=== PATIENT | male | born 1965 | race Caucasian/White ===

== ENCOUNTER 2018-10-25 20:12 | Observation (INO) | payer OTHER, MEDICAID, SELFPAY ==
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
--- NOTE | 2018-10-25 20:17 | DI.CT.S_ITS ---
PROCEDURE: CT CERVICAL SPINE WO CON INDICATIONS: trauma protocol, right shoulder pain TECHNIQUE: Noncontrast 3 mm thick sections acquired from the skull base to the T4 level. Sagittal and coronal reformats were then constructed. For radiation dose reduction, the following was used: automated exposure control, adjustment of mA and/or kV according to patient size. COMPARISON: None. FINDINGS: Image quality: Excellent. Bones: No acute fractures or dislocations. Craniocervical junction is intact. Visualized superior ribs are intact. Mild multilevel cervical spondylosis. Soft tissues: Prevertebral soft tissues are normal in thickness. No paravertebral hematomas. No apical pneumothoraces. IMPRESSION: CT cervical spine without acute fracture or malalignment. Dictated by: Young Millard M.D. on 10/25/2018 at 21:05 Approved by: Young Millard M.D. on 10/25/2018 at 21:07
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
--- NOTE | 2018-10-25 20:18 | DI.CT.S_ITS ---
PROCEDURE: CT HEAD/BRAIN WO CON INDICATIONS: trauma protocol TECHNIQUE: Noncontrast 4.5 mm thick angled axial sections acquired from the foramen magnum to the vertex, with coronal and sagittal reformats. For radiation dose reduction, the following was used: automated exposure control, adjustment of mA and/or kV according to patient size. COMPARISON: None. FINDINGS: Image quality: Excellent. CSF spaces: Basal cisterns are patent. No extra-axial fluid collections. The ventricles are symmetric in size and shape. Brain: No intracranial bleeds or masses. There is cerebral volume loss for age, with resultant ventricular and sulcal prominence. There are periventricular and deep white matter chronic small vessel ischemic changes. There is intracranial internal carotid artery atherosclerosis. Skull and face: Calvarium and visualized facial bones appear intact, without acute fracture. 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 Sinuses: Visualized sinuses and mastoids are clear. IMPRESSION: 1. CT head without acute intracranial abnormalities or calvarial fractures. 2. 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 Recommend outpatient evaluation with contrast-enhanced MRI to further characterize. Dictated by: Young Milalrd M.D. on 10/25/2018 at 21:02 Approved by: Young Millard M.D. on 10/25/2018 at 21:05
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
[2018-10-25 20:22] VITALS: BP 148/94; PULSE 78; RESP 19; TEMP 37; O2SAT 90; BMI 30.2
[2018-10-25 20:31] LABS: Add Manual Diff / Slide Review NO; Basophils Absolute Auto 0 /uL (0-100); Basophils Percent Auto 0.5 % (0-2); Eosinophils Absolute Auto 200 /uL (0-450); Eosinophils Percent Auto 2.2 % (2-4); Hematocrit 41.8 % (41-53); Hemoglobin 13.6 g/dL (13.5-17.5); Lymphocytes Absolute Auto 3000 /uL (1100-4500); Lymphocytes Percent Auto 31.7 % (25-40); Mean Corpuscular HGB Conc 32.5 % (30-36); Mean Corpuscular Hemoglobin 28.8 PG (26-34); Mean Corpuscular Volume 88.5 fL (80-100); Monocytes Absolute Auto 700 /uL (0-900); Monocytes Percent Auto 6.9 % (3-14); Neutrophils Absolute Auto 5600 /uL (1500-7000); Neutrophils Percent Auto 58.7 % (50-75); Platelet Count 280 X10^3/uL (150-400); Red Blood Cell Count 4.72 X10^6/uL (4.5-5.9); Red Cell Distribution Width 13.7 % (11.6-14.8); White Blood Cell Count 9.6 X10^3/uL (4.5-11.0)
[2018-10-25 20:52] LABS: Alanine Aminotransferase 55 IU/L (21-72); Albumin 4.4 g/dL (3.5-5.0); Albumin Globulin Ratio 1.5 (1.0-2.8); Alkaline Phosphatase 57 U/L (38-126); Aspartate Aminotransferase 32 IU/L (17-59); Bilirubin Total 0.5 mg/dL (0.2-1.3); Blood Urea Nitrogen 12 mg/dL (9-20); Calcium 8.4 mg/dL (8.4-10.2); Carbon Dioxide 23 mmol/L (22-32); Chloride 100 mmol/L (98-107); Estimated Glomerular Filt Rate > 60.0 mL/min (>60); Ethanol (ETOH) 110 mg/dL; Glucose 139 mg/dL (70-100); HEMOLYSIS < 15 (0-50); Lipase 81 U/L (23-300); Potassium 3.7 mmol/L (3.4-5.1); Sodium 136 mmol/L (137-145); Total Protein 7.4 g/dL (6.3-8.2)
[2018-10-25 20:56] LABS: Amylase 47 U/L (30-110)
[2018-10-25] MEDS: MORPHINE 5 MG/ML INJ 4 MG IV (20:58)
[2018-10-25] MEDS: SODIUM CHLORIDE 0.9% 1,000 ML 150 ML IV (21:20)
[2018-10-25] MEDS: HYDROMORPHONE 1 MG INJ IV (22:46)
[2018-10-25 22:51] VITALS: BP 126/75; PULSE 78; RESP 12; O2SAT 95
[2018-10-25 23:11] VITALS: PULSE 78; RESP 16; O2SAT 95
[2018-10-26 00:25] VITALS: BP 147/88; PULSE 78; RESP 16; TEMP 37.6; O2SAT 94
[2018-10-26 00:34] VITALS: BMI 30.2
[2018-10-26] MEDS: SODIUM CHLORIDE 0.9% 1,000 ML 100 ML IV ×2 (02:30→14:28)
[2018-10-26] MEDS: HYDROMORPHONE PCA (6MG/30ML) 6 MG/30 ML PCA.VIAL IV ×3 (02:30→18:14)
[2018-10-26 04:15] VITALS: BP 155/97; PULSE 67; RESP 16; TEMP 37.3; O2SAT 96
--- NOTE | 2018-10-26 04:27 | PC.NURSE ---
[employer] Superintendent Note: 0025: Admitted to acute care room 229 from ER. Pt was unable to sit up and stand to get to bed; slider board used to transfer pt from stretcher to bed, and he tolerated fairly well. IVs in place in rt AC and rt forearm. NS started at 150cc/hr per ER orders. Lt arm sling in place to immoblilze lt arm and shoulder. Lt fingers are warm and pink, and radial pulse is strong, equal to rt radial pulse. HOB elevated 30 degrees-pt unable to tolerate HOB being higher due to pain. 0100: Friend arrived to bedside. 0230: Pt placed on Dilaudid SUPERVISOR LEAD BURNING at 0.2/10/6, and basal rate of 0.1mg/hr.
[2018-10-26 08:00] VITALS: BP 160/108; PULSE 62; RESP 16; TEMP 36.8; O2SAT 97
[2018-10-26] MEDS: KETOROLAC 30 MG/ML VIAL IV ×3 (08:14→21:58)
[2018-10-26] MEDS: LISINOPRIL 20 MG TABLET PO (08:15)
[2018-10-26] MEDS: DOCUSATE 100 MG CAPSULE PO (08:15)
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
[2018-10-26 12:00] VITALS: BP 148/89; PULSE 65; RESP 16; TEMP 36.6; O2SAT 96
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
--- NOTE | 2018-10-26 15:37 | PC.NURSE ---
Ortho: SI feel so much better with the toradol. Lots of pain this am even with receiving solutions market consultant cont and bolus. Started IV toradol. Pt reports pain is much improved after same. Has worked with PT and has been using a pain to get up with. Stronger on feet. SBA only due to IV/MACHINIST BENCH pole for safety. Friends at bedside and pt has had lots of company and phone calls. Resting comfortably this afternoon. Cont w/poc.
[2018-10-26 16:45] VITALS: BP 148/86; PULSE 57; RESP 20; TEMP 36.6; O2SAT 96
[2018-10-26] MEDS: PRAVASTATIN 20 MG TABLET PO (20:25)
[2018-10-26] MEDS: FLUTICASONE 120 SPRAY/16 GM SPRAY.SUSP NASAL (20:25)
--- NOTE | 2018-10-26 21:35 | PC.NURSE ---
bria shift- assumed care of pt from outgoing shfit. pt awake and alert.denies CIWA symptoms. complains of back ache. encouraged to move self in bed. needs assistance. has large amount of pain with any movement. STEEL BOX TOE INSERTER in use. reports torodol helps tremendously. Pt belongings and call light within reach. hoping to have a shower but he is worried he will be in too much pain. will continue to monitor.
[2018-10-26 21:54] VITALS: PULSE 65; RESP 18; O2SAT 95
[2018-10-26] MEDS: FLUTICASONE/SALMETEROL 250/50 14 PUFF DISKUS INH (21:54)
--- NOTE | 2018-10-26 23:44 | PC.NURSE ---
Photo Stylist Note: [id number]: Awake, just finished taking shower and shampoo with assistance. Vital signs stable. IVs in place in rt AC and rt forearm. Lt shoulder immobilizer is on. Bruising noted on lt side, lt shoulder. Pt using ATHLETICS TEACHER for pain management.
[2018-10-27] VITALS (7 sets, daily range): BP systolic 135–148; BP diastolic 73–96; PULSE 67–85; RESP 16–21; TEMP 36.5–37.3; O2SAT 93–97
[2018-10-27] MEDS: SODIUM CHLORIDE 0.9% 1,000 ML 100 ML IV (02:28)
[2018-10-27] MEDS: HYDROMORPHONE PCA (6MG/30ML) 6 MG/30 ML PCA.VIAL IV (02:29)
[2018-10-27 05:33] LABS: Add Manual Diff / Slide Review NO; Basophils Absolute Auto 0 /uL (0-100); Basophils Percent Auto 0.4 % (0-2); Eosinophils Absolute Auto 200 /uL (0-450); Eosinophils Percent Auto 2.9 % (2-4); Hematocrit 34.1 % (41-53); Hemoglobin 11.5 g/dL (13.5-17.5); Lymphocytes Absolute Auto 1800 /uL (1100-4500); Lymphocytes Percent Auto 21.1 % (25-40); Mean Corpuscular HGB Conc 33.7 % (30-36); Mean Corpuscular Hemoglobin 30.4 PG (26-34); Mean Corpuscular Volume 90.1 fL (80-100); Monocytes Absolute Auto 800 /uL (0-900); Monocytes Percent Auto 9.6 % (3-14); Neutrophils Absolute Auto 5600 /uL (1500-7000); Platelet Count 166 X10^3/uL (150-400); Red Blood Cell Count 3.78 X10^6/uL (4.5-5.9); Red Cell Distribution Width 13.1 % (11.6-14.8); White Blood Cell Count 8.4 X10^3/uL (4.5-11.0)
[2018-10-27] MEDS: KETOROLAC 30 MG/ML VIAL IV ×3 (06:08→21:37)
[2018-10-27] MEDS: FLUTICASONE/SALMETEROL 250/50 14 PUFF DISKUS INH ×2 (07:52→20:31)
--- NOTE | 2018-10-27 09:05 | PM.PN.1 ---
Subjective Date Patient Seen: 10/27/18 Time Patient Seen: 09:06 Interval history: Still having a large amount of pain with trying to move or taking a deep breath. All in the left upper chest region. currently on a SAP ABAP DEVELOPER and getting Toradol, which works well. However the Toradol wears off after about 5 hours. No nausea or headaches Exam Vital Signs (past 8 hours): - 10/27/18 06:00 10/27/18 08:00 Temperature 98.8 F 97.7 F Pulse Rate 68 68 Respiratory Rate 16 16 Blood Pressure 135/76 144/88 H Pulse Oximetry 97 93 Oxygen Delivery Method Room Air Const Orientation: alert and oriented x3 Extrem Other: Left shoulder ecchymosis over the clavicle and inferior scapula. Still slightly decreased sensation over the deltoid. Intact sensation of the forearm. 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 2+ distal pulses. Objective Labs Result Diagrams: 10/27/18 05:20 10/25/18 20:20 Labs: Laboratory Results - last 24 hr 10/27/18 05:20 WBC 8.4 RBC 3.78 L Hgb 11.5 L Hct 34.1 L MCV 90.1 MCH 30.4 MCHC 33.7 RDW 13.1 Plt Count 166 Neut % (Auto) 66.0 Lymph % (Auto) 21.1 L [place] % (Auto) 9.6 Eos % (Auto) 2.9 Baso % (Auto) 0.4 Neut # (Auto) 5600 Lymph # (Auto) 1800 [place] # (Auto) 800 Eos # (Auto) 200 Baso # (Auto) 0 Assessment & Plan Assessment & Plan narrative: Stable from an orthopedic standpoint. Again explained that this injury should heal fine with just a sling and does not require any surgical intervention. I did go ahead and stop his SAP ABAP DEVELOPER and switched him to Percocet for pain relief. Continue mobilization with therapy. Fine to discharge home from an orthopedic standpoint and he can follow up in my office in a week. Quality VTE Deep Vein Thrombosis/Pulmonary Embolism Present on Admission: No
[2018-10-27] MEDS: LISINOPRIL 20 MG TABLET PO (09:07)
[2018-10-27] MEDS: OXYCODONE/ACETAMINOPHEN 5/325 TABLET 2 TAB PO ×2 (09:07→19:58)
[2018-10-27] MEDS: DOCUSATE 100 MG CAPSULE PO (09:07)
--- NOTE | 2018-10-27 09:08 | P.PN_ITS ---
Subjective Date Patient Seen: 10/27/18 Time Patient Seen: 09:06 Interval history: Still having a large amount of pain with trying to move or taking a deep breath. All in the left upper chest region. currently on a LONE LEAD LINEMAN and getting Toradol, which works well. However the Toradol wears off after about 5 hours. No nausea or headaches Exam Vital Signs (past 8 hours): - 10/27/18 06:00 10/27/18 08:00 Temperature 98.8 F 97.7 F Pulse Rate 68 68 Respiratory Rate 16 16 Blood Pressure 135/76 144/88 H Pulse Oximetry 97 93 Oxygen Delivery Method Room Air Const Orientation: alert and oriented x3 Extrem Other: Left shoulder ecchymosis over the clavicle and inferior scapula. Still slightly decreased sensation over the deltoid. Intact sensation of the forearm. Good performance improvement manager, easily wiggles fingers. 2+ distal pulses. Objective Labs Result Diagrams: 10/27/18 05:20 10/25/18 20:20 Labs: Laboratory Results - last 24 hr 10/27/18 05:20 WBC 8.4 RBC 3.78 L Hgb 11.5 L Hct 34.1 L MCV 90.1 MCH 30.4 MCHC 33.7 RDW 13.1 Plt Count 166 Neut % (Auto) 66.0 Lymph % (Auto) 21.1 L [place] % (Auto) 9.6 Eos % (Auto) 2.9 Baso % (Auto) 0.4 Neut # (Auto) 5600 Lymph # (Auto) 1800 [place] # (Auto) 800 Eos # (Auto) 200 Baso # (Auto) 0 Assessment & Plan Assessment & Plan narrative: Stable from an orthopedic standpoint. Again explained that this injury should heal fine with just a sling and does not require any surgical intervention. I did go ahead and stop his LONE LEAD LINEMAN and switched him to Percocet for pain relief. Continue mobilization with therapy. Fine to discharge home from an orthopedic standpoint and he can follow up in my office in a week. Quality VTE Deep Vein Thrombosis/Pulmonary Embolism Present on Admission: No
[2018-10-27] MEDS: FLUTICASONE 120 SPRAY/16 GM SPRAY.SUSP NASAL ×2 (09:09→21:37)
--- NOTE | 2018-10-27 10:22 | PM.PN.1 ---
Subjective Date Patient Seen: 10/27/18 Time Patient Seen: 10:22 Interval history: Patient is feeling better than yesterday of course he is able to get out of bed with assistance getting PT is been cleared by Orthopedics to be discharged but I do not think he is quite ready yet Exam Vital Signs (past 8 hours): - 10/27/18 06:00 10/27/18 08:00 10/27/18 09:03 Temperature 98.8 F 97.7 F Pulse Rate 68 68 70 Respiratory Rate 16 16 20 Blood Pressure 135/76 144/88 H Pulse Oximetry 97 93 97 Oxygen Delivery Method Room Air Narrative Exam Narrative: Patient is afebrile stable vital signs still has of course a great deal of tenderness around his left shoulder girdle left arm is in a sling and swath. Abdomen is soft and nontender. No new findings. Objective Labs Result Diagrams: 10/27/18 05:20 10/25/18 20:20 Labs: Laboratory Results - last 24 hr 10/27/18 05:20 WBC 8.4 RBC 3.78 L Hgb 11.5 L Hct 34.1 L MCV 90.1 MCH 30.4 MCHC 33.7 RDW 13.1 Plt Count 166 Neut % (Auto) 66.0 Lymph % (Auto) 21.1 L [place] % (Auto) 9.6 Eos % (Auto) 2.9 Baso % (Auto) 0.4 Neut # (Auto) 5600 Lymph # (Auto) 1800 [place] # (Auto) 800 Eos # (Auto) 200 Baso # (Auto) 0 Assessment & Plan Assessment & Plan narrative: Patient is recovering with the assistance of physical therapy. No new findings on history or exam. Will continue the IV Toradol , added Flexeril. When the patient is able to ambulate with minimal assistance then we will let him go home but I do not think is ready to go home yet today. Quality VTE Deep Vein Thrombosis/Pulmonary Embolism Present on Admission: No
[2018-10-27] MEDS: CYCLOBENZAPRINE 10 MG TABLET PO ×2 (11:34→21:37)
[2018-10-27] MEDS: POLYETHYLENE GLYCOL 3350 17 GM POWD.PACK PO (11:34)
[2018-10-27] MEDS: OXYCODONE/ACETAMINOPHEN 5/325 TABLET 1 TAB PO (14:27)
--- NOTE | 2018-10-27 14:33 | PC.NURSE ---
Pain/Mobility: Pain better but still present even with mill helper. Pt would like to try po meds to see if he has pain improvement, hard to remember to push mill helper button. Switched to oral perc and pt received a dose this am and reported it as working better than mill helper. Telephone Solicitor Supervisor off and IVF to saline lock. Dr. Lucero saw pt and added flexaril. Pt was snoozing off and on after same. SI needed that, it's been so hard to sleep here. Opted for only 1 perc this afternoon. Pain remains in control. Hopefully he will cont to feel better. Cont w/poc.
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
[2018-10-27] MEDS: PRAVASTATIN 20 MG TABLET PO (21:37)
--- NOTE | 2018-10-27 22:54 | PC.NURSE ---
DEISI SHIFT NOTE: Patient doing well this shift. Pain helped with 2 percocet, tordol and flexeril. Patient pain increases sharply when tordol wears off per patient. Patient up ambulating with staff this shift. Gait steady. No voiced complaints other than pain. Medicated per eMar. No acute distress. Will continue to monitor.
[2018-10-28 01:00] VITALS: BP 145/79; PULSE 56; RESP 18; TEMP 36.1; O2SAT 99
--- NOTE | 2018-10-28 01:07 | PC.NURSE ---
[employer] History Professor Note: 0100: Sleeping; arousable. Pt states his pain is minimal at this time. Vital signs stable. Lt arm sling remains on. HOB elevated [address] in rt wrist.
[2018-10-28 04:00] VITALS: BP 140/75; PULSE 64; RESP 18; TEMP 36.5; O2SAT 96
[2018-10-28] MEDS: OXYCODONE/ACETAMINOPHEN 5/325 TABLET 2 TAB PO (04:14)
[2018-10-28] MEDS: CYCLOBENZAPRINE 10 MG TABLET PO ×2 (06:06→13:30)
[2018-10-28] MEDS: KETOROLAC 30 MG/ML VIAL IV (06:06)
[2018-10-28 07:27] VITALS: PULSE 54; RESP 14; O2SAT 95
[2018-10-28] MEDS: FLUTICASONE/SALMETEROL 250/50 14 PUFF DISKUS INH (07:28)
[2018-10-28 08:00] VITALS: BP 130/78; PULSE 54; RESP 16; TEMP 36.9; O2SAT 96
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
[2018-10-28] MEDS: POLYETHYLENE GLYCOL 3350 17 GM POWD.PACK PO (09:25)
[2018-10-28] MEDS: DOCUSATE 100 MG CAPSULE PO (09:25)
[2018-10-28] MEDS: FLUTICASONE 120 SPRAY/16 GM SPRAY.SUSP NASAL (09:25)
[2018-10-28] MEDS: LISINOPRIL 20 MG TABLET PO (09:25)
[2018-10-28] MEDS: SODIUM CHLORIDE 0.9% FLUSH 10 ML IV (09:26)
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
--- NOTE | 2018-10-28 11:00 | PC.NURSE ---
Addendum entered by Suzan Pack R.N. 10/28/18 13:41: pt belongings packed up, to include IS and Percocet prescription. Patient requested to ambulate instead of wheelchair, HANDS HANGER walked pt and friend out to ER doors. Original Note: AM Shift pt AO and receptive to care. Reporting 4/10 pain in upper extremity area, which is tolerable and wearing sling. Able to ambulate to BR with cane assistance. PT eval and cleared pt and is now IND in room. Utiling cane to get up from sitting/laying position and gait is steady. Mild edema to lower right extremity (+1, nonpitting). State he is prepared to go home and has a walking stick at home that PT okayed for use.
[2018-10-28] MEDS: OXYCODONE/ACETAMINOPHEN 5/325 TABLET 1 TAB PO ×2 (11:29→13:30)
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
== END 2018-10-28 13:40 | disposition home or self-care (01) | DRG 135 ==
LOC: ED 23:14 → AC 10-26 07:13
PROVIDERS: Admitting Provider Surgery; Emergency Provider Emergency Medicine; Family Provider Family Medicine; PCP Family Medicine; Visit Provider Surgery
DX: S22.42XA Multiple fractures of ribs, left side, initial encounter for closed fracture (principal); S42.002A Fracture of unspecified part of left clavicle, initial encounter for closed fracture; S42.192A Fracture of other part of scapula, left shoulder, initial encounter for closed fracture; I10 Essential (primary) hypertension; E78.5 Hyperlipidemia, unspecified; V86.59XA Driver of other special all-terrain or other off-road motor vehicle injured in nontraffic accident, initial encounter; Y93.I9 Activity, other involving external motion; Z87.891 Personal history of nicotine dependence
CPT/HCPCS: 36415; 70450; 71045; 71260; 72125; 73030; 74177; 80053; 80320; 82150; 83690; 85025; 86850; 86900; 86901; 94640; 94760; 96374; 96375; 97116; 97161; 97530; 99283; 99285; G0378; 90715; J1170; J1885; J2270

== ENCOUNTER → 2020-02-10 13:35 | Outpatient (CLI) | payer OTHER, MEDICAID, SELFPAY ==
[2020-02-10 15:23] LABS: Alanine Aminotransferase 23 IU/L (<50); Albumin 4.6 g/dL (3.5-5.0); Albumin Globulin Ratio 1.7 (1.0-2.8); Alkaline Phosphatase 68 U/L (38-126); Aspartate Aminotransferase 27 IU/L (17-59); BUN Creatinine Ratio 15.7 (6-22); Bilirubin Total 1.1 mg/dL (0.2-1.3); Blood Urea Nitrogen 13 mg/dL (9-20); Calcium 9.9 mg/dL (8.4-10.2); Carbon Dioxide 27 mmol/L (22-32); Chloride 101 mmol/L (98-107); Cholesterol 214 mg/dL (140-199); Estimated Glomerular Filt Rate > 60.0 mL/min (>60); Globulin 2.7 g/dL (1.7-4.1); Glucose 98 mg/dL (70-100); HDL Cholesterol 62 mg/dL (40-60); HEMOLYSIS < 15 (0-50); LDL Cholesterol Calculated 114 mg/dL (<100); Potassium 4.4 mmol/L (3.4-5.1); Sodium 136 mmol/L (137-145); Total Protein 7.3 g/dL (6.3-8.2); Triglycerides 189 mg/dL (35-150)
[2020-02-10 15:33] LABS: Hemoglobin A1C% w Est Avg Glu 5.9 % (4.0-6.0)
[2020-02-10 15:50] LABS: Thyroid Stimulating Hormone 2.47 uIU/mL (0.47-4.68)
== END ==
PROVIDERS: Family Provider Family Medicine; PCP Family Medicine; Referring Provider Family Medicine; Visit Provider Family Medicine
DX: E87.5 Hyperkalemia (principal)
CPT/HCPCS: 36415; 80053; 80061; 83036; 84443

== ENCOUNTER → 2021-10-04 12:51 | Outpatient (CLI) | payer OTHER, MEDICAID, SELFPAY ==
--- NOTE | 2021-10-04 | DI.RAD.S_ITS ---
PROCEDURE: XR KNEE LT 3V INDICATIONS: Pain in left knee TECHNIQUE: 3 views of the knee were acquired. COMPARISON: [facility], , KNEE 3V LEFT, 05/01/2010, 20:34. [facility], , KNEE 3V LEFT, 09/06/2010, 14:37. FINDINGS: Bones: No fractures or dislocations. No suspicious bony lesions. Minimal degenerative joint disease. Soft tissues: No joint effusion. No suspicious soft tissue calcifications. IMPRESSION: Minimal degenerative joint disease. If clinical symptoms persist or clinical suspicion for internal derangement is high, MRI is suggested for further evaluation. Dictated by: Zita Shaikh M.D. on 10/04/2021 at 17:36 Approved by: Zita Shaikh M.D. on 10/04/2021 at 17:38
== END ==
PROVIDERS: Family Provider Family Medicine; PCP Family Medicine; Referring Provider Family Medicine; Visit Provider Family Medicine
DX: M25.562 Pain in left knee (principal)
CPT/HCPCS: 73562

== ENCOUNTER → 2022-05-23 07:43 | Outpatient (CLI) | payer OTHER, MEDICAID, SELFPAY ==
[2022-05-23 08:32] LABS: HEMOLYSIS < 15 (0-50)
[2022-05-23 08:37] LABS: Alanine Aminotransferase 37 IU/L (<50); Albumin 4.3 g/dL (3.5-5.0); Albumin Globulin Ratio 1.5 (1.0-2.8); Alkaline Phosphatase 71 U/L (38-126); Aspartate Aminotransferase 34 IU/L (17-59); BUN Creatinine Ratio 11.4 (6-22); Bilirubin Total 0.9 mg/dL (0.2-1.3); Blood Urea Nitrogen 9 mg/dL (9-20); Calcium 9.3 mg/dL (8.4-10.2); Carbon Dioxide 28 mmol/L (22-32); Chloride 97 mmol/L (98-107); Cholesterol 211 mg/dL (140-199); Estimated Glomerular Filt Rate > 60 mL/min (>60); Globulin 2.8 g/dL (1.7-4.1); Glucose 133 mg/dL (70-100); HDL Cholesterol 62 mg/dL (40-60); LDL Cholesterol Calculated 109 mg/dL (<100); Sodium 134 mmol/L (137-145); Total Protein 7.1 g/dL (6.3-8.2); Triglycerides 200 mg/dL (35-150)
[2022-05-23 15:09] LABS: LDL Cholesterol Direct 137 mg/dL (<100)
[2022-05-23 18:16] LABS: Hemoglobin A1C% w Est Avg Glu 6.2 % (4.0-6.0)
== END ==
PROVIDERS: Family Provider Family Medicine; PCP Family Medicine; Referring Provider Family Medicine; Visit Provider Family Medicine
DX: R73.01 Impaired fasting glucose (principal); E78.5 Hyperlipidemia, unspecified; I10 Essential (primary) hypertension; M10.9 Gout, unspecified
CPT/HCPCS: 36415; 80053; 80061; 83036; 83721; 84550

== ENCOUNTER → 2023-06-01 15:45 | Outpatient (CLI) | payer OTHER, MEDICAID, SELFPAY ==
--- NOTE | 2023-06-01 | DI.RAD.S_ITS ---
PROCEDURE: XR CHEST 2V INDICATIONS: CHEST PAIN TECHNIQUE: 2 views of the chest were acquired. COMPARISON: [facility], CR, XR CHEST 1V, 10/25/2018, 20:15. FINDINGS: Surgical changes and devices: None. Lungs and pleura: Lungs are clear. No pleural effusions or pneumothorax. Mediastinum: Mediastinal contours are normal. Heart size is normal. Bones and chest wall: No suspicious bony abnormalities. Soft tissues appear unremarkable. Old healed right-sided rib fractures IMPRESSION: No acute cardiopulmonary abnormality is seen. Approved by: Riky Marino M.D. on 06/01/2023 at 18:52
== END ==
PROVIDERS: Family Provider Family Medicine; PCP Family Medicine; Referring Provider Family Medicine; Visit Provider Family Medicine
DX: R07.9 Chest pain, unspecified (principal)
CPT/HCPCS: 71046

== ENCOUNTER → 2023-08-15 09:36 | Outpatient (CLI) | payer OTHER, MEDICAID, SELFPAY ==
--- NOTE | 2023-08-15 | DI.NM.S_ITS ---
PROCEDURE: NM YAYA PERF SPECT REST & STR Rest and exercise myocardial perfusion SPECT with gated imaging and ejection fraction RADIOPHARMACEUTICAL: 26.7 mCi Tc-99m sestamibi IV at rest and 24.3 mCi Tc-99m sestamibi IV at peak exercise. A [id number] was performed. INDICATIONS: CHEST PAIN /POSTURAL DIZZINESS W/PRESYNCOPE TECHNIQUE: Radiopharmaceutical was injected at peak stress test, and also at rest. SPECT images were obtained. SPECT myocardial perfusion images were displayed in short axis, horizontal long axis, and vertical long axis views. Gated images were reviewed using [employer] software. COMPARISON: None. CARDIAC STRESS: A standard Jimmy treadmill exercise tolerance test was performed by the patient under the supervision of an attending staff. The patient exercised for 8 minutes and 16 seconds; 9.1 METS; functional aerobic impairment (LUDMILA) is +11%. Hemodynamic data: There is normal blood pressure and heart rate response to exercise stress. Patient achieved 89% of maximum predicted heart rate at peak exercise. Maximum blood pressure 188/94. Symptoms: Patient denied chest pain during exercise. EKG: No diagnostic EKG changes of ischemia; no ectopy. FINDINGS: Raw data: There is good myocardial labeling by radiotracer. No significant motion artifacts. Vbcy-ct-ewgou ratio is 0.22 (normal is less than 0.38 for sestamibi tracer, and less than 0.50 for thallium tracer). Left ventricle function: Gated images demonstrate normal left ventricle wall thickening. No segmental wall motion abnormality. No transient ischemic dilation; TID is 0.9 (normal less than 1.3). The left ventricle resting end-diastolic volume is 172 mL. Left ventricle stress ejection fraction is 68%; normal values are above 45%. Myocardial perfusion: There is a moderate size, medium intensity fixed inferolateral wall defect that resolves in prone imaging. No reversible perfusion defects. IMPRESSION: Low risk study. No evidence of exercise-induced ischemia on ECG or SPECT imaging. The fixed inferolateral wall defect resolves in prone imaging making this most consistent with attenuation artifact. The calculated left ventricular end-diastolic volume suggest that the left ventricle may be dilated. Otherwise the ejection fraction is normal. Normal hemodynamic response to exercise. Reduced exercise capacity. Dictated by: Kimberly Cummins D.O. on 08/16/2023 at 17:48 Approved by: Kimberly Cummins D.O. on 08/16/2023 at 17:51
== END ==
PROVIDERS: Family Provider Family Medicine; PCP Family Medicine; Referring Provider Family Medicine; Visit Provider Family Medicine
DX: R07.9 Chest pain, unspecified (principal); R42 Dizziness and giddiness; R55 Syncope and collapse
CPT/HCPCS: 78452; 93017; A9502

== ENCOUNTER → 2023-11-13 06:47 | Outpatient (CLI) | payer OTHER, MEDICAID, SELFPAY ==
--- NOTE | 2023-11-13 06:49 | DI.ECHO.S_ITS ---
[facility] +---------+ Hospital : : [address] : : [place] : : [id number] : : Phone: [phone] Echocardiogram Report + + :Name: GEORGETTE MELENDEZ Study Date: 11/13/2023 Height: 73 in : :Hospital ReadingLocation: Weight: 250 lb : : Gender: Male BSA: 2.4 m2 : :: 1965 Age: 58 yrs BP: 154/96 mmHg: :Reason For Study: LEFT VENTRICULAR DILATION : :Ordering Physician: HAILEY, : :THUAN Performed By: Jason Ross : :Referring: THUAN HART : + + Interpretation Summary 1) Normal left ventricular thickness, size, wall motion, and systolic function (EF 60-65%). 2) Mildly enlarged right ventricle with normal function. 3) No significant valvular abnormalities. 4) No prior Echo available for comparison. Procedure: A two-dimensional transthoracic echocardiogram with color flow and Doppler was performed. The study quality was technically adequate. There is no prior echocardiogram noted for this patient. The patient was in sinus rhythm with heart rates between 51-68 bpm during the exam. Left Ventricle: The left ventricle is normal in size and wall thickness. The ejection fraction is estimated to be 60-65%. There are no obvious focal wall motion abnormalities noted but poor endocardial definition reduces the sensitivity for the detection of such. Right Ventricle: The right ventricle is mildly dilated. The right ventricular systolic function is normal. Atria: The left atrial size is normal. Right atrial size is normal. The interatrial septum grossly appears intact with no obvious evidence for an atrial septal defect. Mitral Valve: The mitral valve is normal. There is no mitral valve stenosis. There is no mitral regurgitation noted. Aortic Valve: The aortic valve is grossly normal. The aortic valve is not well visualized. There is no aortic valve stenosis. There is trace aortic regurgitation. Tricuspid Valve: The tricuspid valve is normal. There is no tricuspid stenosis. No tricuspid regurgitation. Pulmonic Valve: The pulmonic valve is not well visualized. There is no pulmonic valvular stenosis. There is no pulmonic valvular regurgitation. Great Vessels: The aortic root is normal size. The ascending aorta could not be visualized. The IVC is of normal diameter and collapses greater than 50% with a sniff. This suggests a low right atrial pressure of 3 mm Hg. Pericardium/ Pleura There is no pericardial effusion. There is no pleural effusion. MMode/2D Measurements & Calculations LVIDd: 5.6 cm LVOT diam: 2.1 cm LVIDs: 3.9 cm Ao root diam: 3.3 cm FS: 29.9 % asc Aorta Diam: 3.6 cm IVSd: 0.88 cm Ao Arch Diam (Prox Trans): 3.0 cm LVPWd: 1.1 cm LV almeida. diameter/BSA (cm/m^2): 2.4 LV sys. diameter/BSA (cm/m^2): 1.7 LA A2 area: 20.6 cm2 RA long axis: 4.9 cm LA A4 area: 27.2 cm2 RA area: 19.2 cm2 LA length (vol): 6.4 cm RA vol: 64.4 ml LA vol: 74.5 ml RA : 27.2 ml/m2 LA vol index: 31.5 ml/m2 IVC diam: 2.1 cm RVD1 (basal): 4.4 cm RVD2 (mid): 3.8 cm TAPSE: 3.0 cm Doppler Measurements & Calculations Ao V2 max: 195.3 cm/sec LVOT Max Hardeep: 148.6 cm/sec Ao V2 mean: 130.2 cm/sec LV V1 max P.8 mmHg Ao max P.3 mmHg LV V1 VTI: 34.3 cm Ao mean P.9 mmHg KALE(I,D): 3.0 cm2 Ao V2 VTI: 41.1 cm KALE(V,D): 2.7 cm2 sev ratio: 0.83 KALE indexed to BSA (cm^2/m^2): 1.3 MV E max hardeep: 105.3 cm/sec PA V2 max: 126.6 cm/sec MV A max hardeep: 83.5 cm/sec PA V2 mean: 77.2 cm/sec MV E/A: 1.3 PA mean P.9 mmHg Med Peak E' Hardeep: 7.4 cm/sec PA pr(Accel): 37.9 mmHg E/E' med: 14.3 Lat Peak E' Hardeep: 10.7 cm/sec E/E' lat: 9.8 E/e' average: 12.1 MV dec time: 0.24 sec SV(JACQUI): 122.2 ml Reading Physician:09:08 ALDEN
== END ==
PROVIDERS: Family Provider Family Medicine; PCP Family Medicine; Referring Provider Family Medicine; Visit Provider Family Medicine
DX: I51.7 Cardiomegaly (principal)
CPT/HCPCS: 93306

== ENCOUNTER → 2023-12-04 14:46 | Outpatient (CLI) | payer OTHER, MEDICAID, SELFPAY | LOC: RESP 14:46 | PROVIDERS: Family Provider Family Medicine; PCP Family Medicine; Referring Provider Family Medicine; Visit Provider Family Medicine | DX: J45.901 Unspecified asthma with (acute) exacerbation (principal); Z87.891 Personal history of nicotine dependence | CPT/HCPCS: 94060; 94726; 94729 ==

== ENCOUNTER → 2024-10-20 08:06 | Outpatient (CLI) | payer OTHER, SELFPAY ==
--- NOTE | 2024-10-20 08:06 | DI.ECHO.S_ITS ---
[place] +---------+ Hospital : : [address] : : [place] : : [id number] : : Phone: [phone] Echocardiogram Report + + :Name: GEORGETTE MELENDEZ Study Date: 10/20/2024 Height: 73 in : :Hospital ReadingLocation: Weight: 235 lb : : Gender: Male BSA: 2.3 m2 : :: 1965 Age: 59 yrs BP: 197/110 mmHg: :Reason For Study: CARDIOMEGALY : :Ordering Physician: HAILEY, : :THUAN Performed By: Jason Ross : :Referring: THUAN HART : + + Interpretation Summary Hypertension. The left ventricle is borderline dilated. The ejection fraction is estimated to be 55-60%. Diastolic function could not be accurately assessed due to unobtainable data. The left atrium is mildly dilated. The right ventricle is mildly dilated. The right ventricular systolic function is normal. Pulmonary artery pressures cannot be estimated because of the lack of a measurable TR jet velocity but the IVC suggests a CVP of around 8 mmHg. The ascending aorta is mildly enlarged. Compared to the prior study 11/13/2023, the left ventricular end-diastolic diameter has increased. Procedure: A two-dimensional transthoracic echocardiogram with color flow and Doppler was performed. The study quality was technically good. Comparison is made with the echocardiogram of 11/13/2023. The patient was in normal sinus rhythm during the exam. Left Ventricle: Left ventricular wall thickness is mildly increased. The left ventricle is borderline dilated. There is no ventricular septal defect visualized. The ejection fraction is estimated to be 55-60%. There are no focal wall motion abnormalities. Diastolic function could not be accurately assessed due to unobtainable data. Right Ventricle: The right ventricle is mildly dilated. The right ventricular systolic function is normal. Atria: The left atrium is mildly dilated. The right atrium is mildly dilated. There is no Doppler evidence for an interatrial shunt. Mitral Valve: The mitral valve leaflets appear normal. There is no evidence of stenosis, fluttering, or prolapse. There is trace mitral regurgitation. Aortic Valve: The aortic valve is trileaflet. The aortic valve opens well. There is no aortic valve stenosis. There is trace aortic regurgitation. Tricuspid Valve: The tricuspid valve leaflets are thin and pliable. No tricuspid regurgitation. Pulmonary artery pressures cannot be estimated because of the lack of a measurable TR jet velocity but the IVC suggests a CVP of around 8 mmHg. Pulmonic Valve: The pulmonic valve is normal in structure and function. There is no pulmonic valvular regurgitation. Great Vessels: The aortic root is normal size. The ascending aorta is mildly enlarged. The pulmonary artery is normal size. The IVC is of normal diameter and collapses less than 50% with a sniff. This suggests a right atrial pressure of 8 mm Hg. Pericardium/ Pleura There is no pericardial effusion. There is no pleural effusion. MMode/2D Measurements & Calculations LVIDd: 6.0 cm LVOT diam: 2.2 cm LVIDs: 4.3 cm Ao root diam: 3.5 cm FS: 27.3 % asc Aorta Diam: 3.8 cm EPSS: 1.3 cm IVSd: 1.1 cm LVPWd: 1.1 cm LV almeida. diameter/BSA (cm/m^2): 2.6 LV sys. diameter/BSA (cm/m^2): 1.9 LA A2 area: 23.0 cm2 RA long axis: 5.2 cm LA A4 area: 25.1 cm2 RA area: 18.3 cm2 LA length (vol): 6.2 cm RA vol: 55.2 ml LA vol: 79.5 ml RA : 24.0 ml/m2 LA vol index: 34.5 ml/m2 IVC diam: 2.0 cm RVD1 (basal): 4.3 cm RVD2 (mid): 2.7 cm TAPSE: 3.3 cm Doppler Measurements & Calculations Ao V2 max: 166.3 cm/sec LVOT Max Hardeep: 126.0 cm/sec Ao V2 mean: 109.5 cm/sec LV V1 max P.4 mmHg Ao max P.1 mmHg LV V1 VTI: 29.5 cm Ao mean P.6 mmHg KALE(I,D): 3.3 cm2 Ao V2 VTI: 35.8 cm KALE(V,D): 3.0 cm2 sev ratio: 0.82 KALE indexed to BSA (cm^2/m^2): 1.4 MV E max hardeep: 95.5 cm/sec PA V2 max: 119.0 cm/sec MV A max hardeep: 81.2 cm/sec PA V2 mean: 80.6 cm/sec MV E/A: 1.2 PA mean P.9 mmHg Med Peak E' Hardeep: 6.8 cm/sec PA pr(Accel): 60.2 mmHg E/E' med: 14.0 Lat Peak E' Hardeep: 9.4 cm/sec E/E' lat: 10.2 E/e' average: 12.1 MV dec time: 0.16 sec [facility] 116.8 ml Reading Physician:03:31 PM
== END ==
PROVIDERS: Family Provider Family Medicine; PCP Family Medicine; Referring Provider Family Medicine; Visit Provider Family Medicine
DX: I51.7 Cardiomegaly (principal); I77.89 Other specified disorders of arteries and arterioles
CPT/HCPCS: 93306

== ENCOUNTER → 2024-11-25 09:06 | Outpatient (CLI) | payer OTHER, SELFPAY ==
--- NOTE | 2024-11-25 09:09 | DI.US.S_ITS ---
PROCEDURE: US ABDOMEN LIMITED INDICATIONS: STEATOSIS OF LIVER AND SCREENING ABDOMINAL AORTIC ANERUYSM. HISTORY OF DILATED THORACIC AORTA. TECHNIQUE: Real-time scanning was performed of the abdominal and retroperitoneal organs, with image documentation. COMPARISON: None. FINDINGS: Liver: Hepatic parenchyma shows diffuse increased echogenicity consistent with fatty infiltration. Hepatomegaly, 20.0 cm Gallbladder: Cholecystectomy Common Bile Duct: 3.8 mm. Pancreas: Unremarkable as visualized IMPRESSION: Hepatic steatosis without focal mass lesion Hepatomegaly Approved by: Riky Marino M.D. on 11/25/2024 at 17:45
== END ==
PROVIDERS: Family Provider Family Medicine; PCP Family Medicine; Referring Provider Family Medicine; Visit Provider Family Medicine
DX: K76.0 Fatty (change of) liver, not elsewhere classified (principal); R16.2 Hepatomegaly with splenomegaly, not elsewhere classified; I71.40 Abdominal aortic aneurysm, without rupture, unspecified; Z90.49 Acquired absence of other specified parts of digestive tract
CPT/HCPCS: 76705